=== PATIENT | female | born 1935 | race African-American/Black ===

== ENCOUNTER 2016-04-22 09:00 | Outpatient (RCR) | payer OTHER | END 2016-05-14 | disposition home or self-care (01) | LOC: PTY 09:00 | DX: M53.3 Sacrococcygeal disorders, not elsewhere classified (principal); M54.5 Low back pain; M47.817 Spondylosis without myelopathy or radiculopathy, lumbosacral region | CPT/HCPCS: 97110; 97140; 97162; G0283 ==

== ENCOUNTER 2016-05-17 09:10 | Outpatient (RCR) | payer OTHER | END 2016-06-14 | disposition home or self-care (01) | LOC: PTY 09:10 | DX: M53.3 Sacrococcygeal disorders, not elsewhere classified (principal); M54.5 Low back pain; M47.817 Spondylosis without myelopathy or radiculopathy, lumbosacral region | CPT/HCPCS: 97110; G0283 ==

== ENCOUNTER 2016-12-13 10:56 | Outpatient (RCR) | payer OTHER | END 2016-12-14 | disposition home or self-care (01) | LOC: PTY 10:56 | DX: M25.571 Pain in right ankle and joints of right foot (principal); G89.29 Other chronic pain ==

== ENCOUNTER 2017-01-06 09:09 | Outpatient (RCR) | payer OTHER | END 2017-01-14 | disposition home or self-care (01) | LOC: PTY 09:09 | DX: M25.571 Pain in right ankle and joints of right foot (principal); G89.29 Other chronic pain; E11.9 Type 2 diabetes mellitus without complications; I10 Essential (primary) hypertension; J45.909 Unspecified asthma, uncomplicated | CPT/HCPCS: 97110; 97140; G0283 ==

== ENCOUNTER 2017-04-23 08:26 | Outpatient (RCR) | payer OTHER | END 2017-05-14 | disposition home or self-care (01) | LOC: PTY 08:26 | DX: M25.571 Pain in right ankle and joints of right foot (principal); G89.29 Other chronic pain; M47.27 Other spondylosis with radiculopathy, lumbosacral region | CPT/HCPCS: 97110; 97140; 97161; G0283 ==

== ENCOUNTER 2017-05-19 08:30 | Outpatient (RCR) | payer OTHER | END 2017-06-14 | disposition home or self-care (01) | LOC: PTY 08:30 | DX: M47.27 Other spondylosis with radiculopathy, lumbosacral region (principal); M25.571 Pain in right ankle and joints of right foot; G89.29 Other chronic pain | CPT/HCPCS: 97110; G0283 ==

== ENCOUNTER 2017-06-16 08:45 | Outpatient (RCR) | payer OTHER | END 2017-07-14 | disposition home or self-care (01) | LOC: PTY 08:45 | DX: M47.27 Other spondylosis with radiculopathy, lumbosacral region (principal) | CPT/HCPCS: 97110; G0283 ==

== ENCOUNTER 2017-06-23 09:00 | Outpatient (RCR) | payer OTHER | END 2017-07-14 | disposition home or self-care (01) | LOC: PTY 09:00 | PROVIDERS: ATTEND Internal Medicine | DX: M17.12 Unilateral primary osteoarthritis, left knee (principal); M47.27 Other spondylosis with radiculopathy, lumbosacral region | CPT/HCPCS: 97032; 97110; 97161; G0283 ==

== ENCOUNTER 2017-07-17 08:37 | Outpatient (RCR) | payer OTHER | END 2017-08-14 | disposition home or self-care (01) | LOC: PTY 08:37 | DX: M47.27 Other spondylosis with radiculopathy, lumbosacral region (principal) ==

== ENCOUNTER 2017-08-07 09:00 | Outpatient (RCR) | payer OTHER | END 2017-08-14 | disposition home or self-care (01) | LOC: PTY 09:00 | PROVIDERS: ATTEND Internal Medicine | DX: M47.27 Other spondylosis with radiculopathy, lumbosacral region (principal); M17.12 Unilateral primary osteoarthritis, left knee ==

== ENCOUNTER 2017-08-18 09:29 | Outpatient (RCR) | payer OTHER | END 2017-09-13 | disposition home or self-care (01) | LOC: PTY 09:29 | PROVIDERS: ATTEND Internal Medicine | DX: M47.27 Other spondylosis with radiculopathy, lumbosacral region (principal); M17.12 Unilateral primary osteoarthritis, left knee ==